=== PATIENT | female | born 1955 | race Caucasian/White ===

== ENCOUNTER 2021-03-08 07:05 | Day surgery (SDC) | payer MEDICARE, MEDICAID, SELFPAY ==
[2021-03-01 13:20] VITALS: BMI 30.8
--- NOTE | 2021-03-04 07:41 | MHC.SHP ---
Pre-Procedural Eval Section A The patient is an INPATIENT: No The History & Physical has been completed within 30 days and I have reviewed it.: Yes Section B Chief Complaint: Cataract Left Eye Allergies: Allergies Allergy/AdvReac Type Severity Reaction Status Date / Time Penicillins Allergy Severe HALLUCINATI Unverified 03/01/21 12:49 ONS adhesive tape [ADHESIVE TAPE] Allergy Intermediate SKIN Unverified 03/01/21 12:49 IRRITATION clarithromycin [From BIAXIN] Allergy Intermediate TONGUE Unverified 03/01/21 12:49 LESIONS clindamycin [Clindamycin] Allergy Intermediate HIVES Unverified 03/01/21 12:49 erythromycin base Allergy Intermediate HIVES Unverified 03/01/21 12:49 [Erythromycin Base] Iodinated Contrast Media Allergy Intermediate TREMORS Unverified 03/01/21 12:49 [IV Dye, Iodine Containing] Sulfa (Sulfonamide Allergy Intermediate HIVES Unverified 03/01/21 12:49 Antibiotics) lactose [LACTOSE] AdvReac Severe DIARRHEA Unverified 03/01/21 12:49 Shellfish Allergy Intermediate SEVERE EAR Uncoded 03/01/21 12:49 PAIN liquid oxycodone Allergy Unknown head Uncoded 03/01/21 12:49 itching - liquid prep only surgical tape Allergy Unknown irritated Uncoded 03/01/21 12:49 skin Plan Diagnosis/Plan: Unchanged I have reviewed the history and physical and performed a pertinent physical examination on my patient. No changes have occurred unless specified.
--- NOTE | 2021-03-05 09:34 | HO.ANESPROP2 ---
Documented by User: Shira Levyney 03/05/21 09:35 HPI - Anesthesia Eval Consult details Narrative: 65yo F for Left Cataract Extraction IOL Insertion PCP cleared No prev cataract on record *Multiple allergies* PMFSH Past Medical History Medical History (Updated 03/01/21 @ 13:19 by Fay العلي) Anxiety disorder Asthma CHF (congestive heart failure) COPD (chronic obstructive pulmonary disease) COVID-19 vaccine series completed Depression DJD (degenerative joint disease) Hiatal hernia HTN (hypertension) Hyperlipidemia Neck pain Obesity PTSD (post-traumatic stress disorder) Recurrent falls Sleep apnea Spinal stenosis Surgical History Surgical History (Updated 03/01/21 @ 13:19 by Fay العلي) History of carpal tunnel repair History of hysterectomy History of repair of hiatal hernia History of umbilical hernia repair Hx laparoscopic cholecystectomy Hx of dilation and curettage Hx of gastric bypass Hx of left breast biopsy Status post panniculectomy Social History Social History Are you a primary healthcare administration internship to a significant other at home: No Do you presently have visiting nurse or other home services: No Patient Tobacco Use Status: Former Tobacco user Quit Date: > 20 yrs ago Tobacco use type: Cigarette Use of substances other than those prescribed or required for medical reasons: No Have you been hit, kicked, punched, or otherwise hurt by someone within the past year? If so, by whom?: No Are you DNR?: No Advance Directives: No Advance Directives Information Provided: No Advance Directives on File: No Recently lost weight without trying: No Eating poorly because of decreased appetite: No Nutrition Risks: No Nutritional Risk Meds Allergies Allergy/AdvReac Type Severity Reaction Status Date / Time Penicillins Allergy Severe HALLUCINATI Verified 03/08/21 07:32 ONS adhesive tape [ADHESIVE TAPE] Allergy Intermediate SKIN Verified 03/08/21 07:32 IRRITATION clarithromycin [From BIAXIN] Allergy Intermediate TONGUE Verified 03/08/21 07:32 LESIONS clindamycin [Clindamycin] Allergy Intermediate HIVES Verified 03/08/21 07:32 erythromycin base Allergy Intermediate HIVES Verified 03/08/21 07:32 [Erythromycin Base] Iodinated Contrast Media Allergy Intermediate TREMORS Verified 03/08/21 07:32 [IV Dye, Iodine Containing] Sulfa (Sulfonamide Allergy Intermediate HIVES Verified 03/08/21 07:32 Antibiotics) lactose [LACTOSE] AdvReac Severe DIARRHEA Verified 03/08/21 07:32 Shellfish Allergy Intermediate SEVERE EAR Uncoded 03/01/21 12:49 PAIN liquid oxycodone Allergy Unknown head Uncoded 03/01/21 12:49 itching - liquid prep only surgical tape Allergy Unknown irritated Uncoded 03/01/21 12:49 skin Home Medications Medication Instructions Recorded Confirmed Last Taken Type albuterol sulfate [Ventolin HFA] 2 puff INHALATION QID PRN 03/01/21 03/01/21 Unknown History amlodipine 1 tab PO DAILY 03/01/21 03/01/21 Unknown History ascorbic acid (vitamin C) [Vitamin 500 mg PO BID 03/01/21 03/01/21 Unknown History C] baclofen 1 tab PO TID 03/01/21 03/01/21 Unknown History diazepam 1 tab PO BEDTIME 03/01/21 03/01/21 Unknown History diazepam 1 tab PO BID 03/01/21 03/01/21 Unknown History diclofenac sodium TOPICAL 03/01/21 Unknown History doxepin PO 03/01/21 Unknown History estradiol [Estrace] VAGINAL 03/01/21 Unknown History fluticasone propion-salmeterol 1 puff INHALATION BID 03/01/21 03/01/21 Unknown History [Advair Diskus] gabapentin 1 cap PO TID 03/01/21 03/01/21 Unknown History lamotrigine 1 tab PO DAILY 03/01/21 03/01/21 Unknown History melatonin 3 mg PO DIRECTED 03/01/21 03/01/21 Unknown History mirabegron [Myrbetriq] 1 tab PO DAILY 03/01/21 03/01/21 Unknown History multivitamin 1 tab PO DAILY 03/01/21 03/01/21 Unknown History naloxegol [Movantik] mg PO 03/01/21 Unknown History omeprazole 1 cap PO BID 03/01/21 03/01/21 Unknown History potassium chloride 1 tab PO DAILY 03/01/21 03/01/21 Unknown History prazosin 1 cap PO BEDTIME 03/01/21 03/01/21 Unknown History simvastatin 1 tab PO BEDTIME 03/01/21 03/01/21 Unknown History torsemide 1 tab PO BID 03/01/21 03/01/21 Unknown History trazodone 1 tab PO BEDTIME 03/01/21 03/01/21 Unknown History venlafaxine 150 mg PO BID 03/01/21 03/01/21 Unknown History Exam Exam Date and Time: March 05, 2021 0934 Height,Weight and Vital Signs: Height 5 ft Weight 71.668 kg Assessment and Plan Assessment Anesthesia Assessment: Chart Reviewed Documented by User: Vidhya Gruber 03/08/21 08:01 [facility] Past Medical History Medical History (Updated 03/01/21 @ 13:19 by Fay العلي) Anxiety disorder Asthma CHF (congestive heart failure) COPD (chronic obstructive pulmonary disease) COVID-19 vaccine series completed Depression DJD (degenerative joint disease) Hiatal hernia HTN (hypertension) Hyperlipidemia Neck pain Obesity PTSD (post-traumatic stress disorder) Recurrent falls Sleep apnea Spinal stenosis Surgical History Surgical History (Updated 03/01/21 @ 13:19 by Fay العلي) History of carpal tunnel repair History of hysterectomy History of repair of hiatal hernia History of umbilical hernia repair Hx laparoscopic cholecystectomy Hx of dilation and curettage Hx of gastric bypass Hx of left breast biopsy Status post panniculectomy Social History Social History Are you a primary healthcare administration internship to a significant other at home: No Do you presently have visiting nurse or other home services: No Patient Tobacco Use Status: Former Tobacco user Quit Date: > 20 yrs ago Tobacco use type: Cigarette Use of substances other than those prescribed or required for medical reasons: No Have you been hit, kicked, punched, or otherwise hurt by someone within the past year? If so, by whom?: No Are you DNR?: No Advance Directives: No Advance Directives Information Provided: No Advance Directives on File: No Recently lost weight without trying: No Eating poorly because of decreased appetite: No Nutrition Risks: No Nutritional Risk Meds Allergies Allergy/AdvReac Type Severity Reaction Status Date / Time Penicillins Allergy Severe HALLUCINATI Verified 03/08/21 07:32 ONS adhesive tape [ADHESIVE TAPE] Allergy Intermediate SKIN Verified 03/08/21 07:32 IRRITATION clarithromycin [From BIAXIN] Allergy Intermediate TONGUE Verified 03/08/21 07:32 LESIONS clindamycin [Clindamycin] Allergy Intermediate HIVES Verified 03/08/21 07:32 erythromycin base Allergy Intermediate HIVES Verified 03/08/21 07:32 [Erythromycin Base] Iodinated Contrast Media Allergy Intermediate TREMORS Verified 03/08/21 07:32 [IV Dye, Iodine Containing] Sulfa (Sulfonamide Allergy Intermediate HIVES Verified 03/08/21 07:32 Antibiotics) lactose [LACTOSE] AdvReac Severe DIARRHEA Verified 03/08/21 07:32 Shellfish Allergy Intermediate SEVERE EAR Uncoded 03/01/21 12:49 PAIN liquid oxycodone Allergy Unknown head Uncoded 03/01/21 12:49 itching - liquid prep only surgical tape Allergy Unknown irritated Uncoded 03/01/21 12:49 skin Home Medications Medication Instructions Recorded Confirmed Last Taken Type albuterol sulfate [Ventolin HFA] 2 puff INHALATION QID PRN 03/01/21 03/01/21 Unknown History amlodipine 1 tab PO DAILY 03/01/21 03/01/21 Unknown History ascorbic acid (vitamin C) [Vitamin 500 mg PO BID 03/01/21 03/01/21 Unknown History C] baclofen 1 tab PO TID 03/01/21 03/01/21 Unknown History diazepam 1 tab PO BEDTIME 03/01/21 03/01/21 Unknown History diazepam 1 tab PO BID 03/01/21 03/01/21 Unknown History diclofenac sodium TOPICAL 03/01/21 Unknown History doxepin PO 03/01/21 Unknown History estradiol [Estrace] VAGINAL 03/01/21 Unknown History fluticasone propion-salmeterol 1 puff INHALATION BID 03/01/21 03/01/21 Unknown History [Advair Diskus] gabapentin 1 cap PO TID 03/01/21 03/01/21 Unknown History lamotrigine 1 tab PO DAILY 03/01/21 03/01/21 Unknown History melatonin 3 mg PO DIRECTED 03/01/21 03/01/21 Unknown History mirabegron [Myrbetriq] 1 tab PO DAILY 03/01/21 03/01/21 Unknown History multivitamin 1 tab PO DAILY 03/01/21 03/01/21 Unknown History naloxegol [Movantik] mg PO 03/01/21 Unknown History omeprazole 1 cap PO BID 03/01/21 03/01/21 Unknown History potassium chloride 1 tab PO DAILY 03/01/21 03/01/21 Unknown History prazosin 1 cap PO BEDTIME 03/01/21 03/01/21 Unknown History simvastatin 1 tab PO BEDTIME 03/01/21 03/01/21 Unknown History torsemide 1 tab PO BID 03/01/21 03/01/21 Unknown History trazodone 1 tab PO BEDTIME 03/01/21 03/01/21 Unknown History venlafaxine 150 mg PO BID 03/01/21 03/01/21 Unknown History Exam Airway Mallampati Class: II (Edentulous) TM Dist: >3cm Neck ROM: Full Heart: rrr Lungs: cta Assessment and Plan Assessment Anesthesia Assessment: Anesthesia Plan Discussed and Chart Reviewed Final Anesthetic Review NPO: Yes (Sip water) ASA Class: III Final Preanesthetic Review: No Changes in Pt Med Stat and Consent Obtained/Reviewed Patient Risk: Intermediate Procedure Risk: Intermediate Anesthetic Plan Anesthetic Plan: MAC: Disposition: Standard PACU
[2021-03-08 07:11] VITALS: BP 131/76; PULSE 75; RESP 16; TEMP 36.3; O2SAT 97
[2021-03-08] MEDS: Tetracaine HCl/PF 0.5% Oph Sol 4 ML DROPS 1 DROP EYE-LEFT (07:35)
[2021-03-08] MEDS: Lactated Ringers 500 ML 50 ML IV (07:35)
[2021-03-08] MEDS: Tropicamide 1 % Ophth Sol 3 ML BTL 1 DROP EYE-LEFT ×3 (07:37→07:43)
[2021-03-08] MEDS: Phenylephrine HCL 2.5% Oph SoL 2 ML BOTTLE 1 DROP EYE-LEFT ×3 (07:39→07:44)
[2021-03-08] MEDS: Metoclopramide HCl 10 MG/2 ML VIAL IVPUSH (08:06)
--- NOTE | 2021-03-08 09:49 | HO.PNOPHT ---
Ophthalmology Procedure Procedure Date of Service: 03/08/21 Ophthalmology Viscoelastic: Healon Duet Dual Pack Pro Ophthalmology Lenses: TECNIS [id number] (23.5) Procedure Notes: PREOPERATIVE DIAGNOSIS: Decreased visual acuity left eye secondary to cataract POSTOPERATIVE DIAGNOSIS: Same PROCEDURE: Left cataract extraction with intraocular lens insertion SURGEON: Pasha Méndez M.D. ANESTHESIA: Topical/MAC ESTIMATED BLOOD LOSS: None COMPLICATIONS: None After obtaining informed consent, the patient was brought to the operation room suite and placed in the supine position. After adequate sedation per anesthesia, topical drops of Tetracaine were given to the left eye. The eye was then prepped and draped in the usual sterile fashion. The operating room microscope was then positioned over the operative eye and a lid speculum placed. A paracentesis was created. Viscoelastic was then instilled into the anterior chamber. A three plane incision was then created temporally, utilizing a 2.85 mm keratome. Capsulotomy forceps were then utilized to create a circular tear capsulotomy. Hydrodissection and hydrodelineation were carried out until adequate mobilization of the nucleus occurred. Phacoemulsification was then utilized to remove the dense central nucleus followed by removal of the cortical material utilizing the automated aspiration irrigation unit. Viscoat elastic was instilled into the posterior capsular bag followed by placement of a posterior chamber intraocular lens without difficulty. The residual Viscoat elastic was then removed utilizing the automated IA machine. The wound was check and found to be watertight. The patient tolerated the procedure well and the lid speculum was removed. Intracameral injection of Vigamox 0.1 mL followed by a subtenon injection of Kenalog-40 0.2 mL were administered. The patient will be seen in the a.m.
[2021-03-08 10:07] VITALS: BP 126/62; PULSE 66; RESP 17; TEMP 36.3; O2SAT 94
== END 2021-03-08 11:00 | disposition home or self-care (01) ==
PROVIDERS: PCP Internal Medicine; Visit Provider Ophthalmology
PROC: (CPT 66985; principal; 2021-03-08 09:40)
DX: H25.12 Age-related nuclear cataract, left eye (principal); H54.7 Unspecified visual loss; I11.0 Hypertensive heart disease with heart failure; I50.9 Heart failure, unspecified; J44.9 Chronic obstructive pulmonary disease, unspecified; Z88.0 Allergy status to penicillin; Z88.1 Allergy status to other antibiotic agents; Z91.041 Radiographic dye allergy status; Z88.2 Allergy status to sulfonamides; Z79.51 Long term (current) use of inhaled steroids; Z79.82 Long term (current) use of aspirin; Z79.899 Other long term (current) drug therapy
CPT/HCPCS: 66984; J2250; J2765; J3010; J3300; V2632

== ENCOUNTER 2021-03-29 06:24 | Day surgery (SDC) | payer MEDICARE, MEDICAID, SELFPAY ==
[2021-03-01 13:26] VITALS: BMI 30.8
--- NOTE | 2021-03-25 07:32 | MHC.SHP ---
Pre-Procedural Eval Section A Date of Service: 03/25/21 The patient is an INPATIENT: No The History & Physical has been completed within 30 days and I have reviewed it.: Yes Section B Chief Complaint: Cataract Right Eye Allergies: Allergies Allergy/AdvReac Type Severity Reaction Status Date / Time Penicillins Allergy Severe HALLUCINATI Verified 03/08/21 07:32 ONS adhesive tape [ADHESIVE TAPE] Allergy Intermediate SKIN Verified 03/08/21 07:32 IRRITATION clarithromycin [From BIAXIN] Allergy Intermediate TONGUE Verified 03/08/21 07:32 LESIONS clindamycin [Clindamycin] Allergy Intermediate HIVES Verified 03/08/21 07:32 erythromycin base Allergy Intermediate HIVES Verified 03/08/21 07:32 [Erythromycin Base] Iodinated Contrast Media Allergy Intermediate TREMORS Verified 03/08/21 07:32 [IV Dye, Iodine Containing] Sulfa (Sulfonamide Allergy Intermediate HIVES Verified 03/08/21 07:32 Antibiotics) lactose [LACTOSE] AdvReac Severe DIARRHEA Verified 03/08/21 07:32 Shellfish Allergy Intermediate SEVERE EAR Uncoded 03/01/21 12:49 PAIN liquid oxycodone Allergy Unknown head Uncoded 03/01/21 12:49 itching - liquid prep only surgical tape Allergy Unknown irritated Uncoded 03/01/21 12:49 skin Plan Diagnosis/Plan: Unchanged I have reviewed the history and physical and performed a pertinent physical examination on my patient. No changes have occurred unless specified.
--- NOTE | 2021-03-26 09:36 | P.CONAN_ITS ---
Documented by User: Shira Alba 03/26/21 09:37 HPI - Anesthesia Eval Consult details Narrative: 65yo F for Right Cataract Extraction IOL Insertion PCP cleared Left eye 03/08: Fent 50, Midaz 1 *Multiple allergies* PMFSH Past Medical History Medical History (Updated 03/01/21 @ 13:19 by Fay العلي) Anxiety disorder Asthma CHF (congestive heart failure) COPD (chronic obstructive pulmonary disease) COVID-19 vaccine series completed Depression DJD (degenerative joint disease) Hiatal hernia HTN (hypertension) Hyperlipidemia Neck pain Obesity PTSD (post-traumatic stress disorder) Recurrent falls Sleep apnea Spinal stenosis Surgical History Surgical History (Updated 03/01/21 @ 13:19 by Fay العلي) History of carpal tunnel repair History of hysterectomy History of repair of hiatal hernia History of umbilical hernia repair Hx laparoscopic cholecystectomy Hx of dilation and curettage Hx of gastric bypass Hx of left breast biopsy Status post panniculectomy Social History Social History Are you a primary home care music therapist to a significant other at home: No Do you presently have visiting nurse or other home services: No Patient Tobacco Use Status: Former Tobacco user Quit Date: > 20 yrs ago Tobacco use type: Cigarette Use of substances other than those prescribed or required for medical reasons: No Have you been hit, kicked, punched, or otherwise hurt by someone within the past year? If so, by whom?: No Are you DNR?: No Advance Directives: No Advance Directives Information Provided: No Advance Directives on File: No Recently lost weight without trying: No Eating poorly because of decreased appetite: No Nutrition Risks: No Nutritional Risk Patient : No Meds Allergies Allergy/AdvReac Type Severity Reaction Status Date / Time Penicillins Allergy Severe HALLUCINATI Verified 03/08/21 07:32 ONS adhesive tape [ADHESIVE TAPE] Allergy Intermediate SKIN Verified 03/08/21 07:32 IRRITATION clarithromycin [From BIAXIN] Allergy Intermediate TONGUE Verified 03/08/21 07:32 LESIONS clindamycin [Clindamycin] Allergy Intermediate HIVES Verified 03/08/21 07:32 erythromycin base Allergy Intermediate HIVES Verified 03/08/21 07:32 [Erythromycin Base] Iodinated Contrast Media Allergy Intermediate TREMORS Verified 03/08/21 07:32 [IV Dye, Iodine Containing] Sulfa (Sulfonamide Allergy Intermediate HIVES Verified 03/08/21 07:32 Antibiotics) lactose [LACTOSE] AdvReac Severe DIARRHEA Verified 03/08/21 07:32 Shellfish Allergy Intermediate SEVERE EAR Uncoded 03/01/21 12:49 PAIN liquid oxycodone Allergy Unknown head Uncoded 03/01/21 12:49 itching - liquid prep only surgical tape Allergy Unknown irritated Uncoded 03/01/21 12:49 skin Home Medications Medication Instructions Recorded Confirmed Last Taken Type albuterol sulfate [Ventolin HFA] 2 puff INHALATION QID PRN 03/01/21 03/01/21 Unknown History amlodipine 1 tab PO DAILY 03/01/21 03/01/21 03/29/21 History ascorbic acid (vitamin C) [Vitamin 500 mg PO BID 03/01/21 03/01/21 Unknown History C] baclofen 1 tab PO TID 03/01/21 03/01/21 Unknown History diazepam 1 tab PO BEDTIME 03/01/21 03/01/21 Unknown History diazepam 1 tab PO BID 03/01/21 03/01/21 Unknown History diclofenac sodium TOPICAL 03/01/21 Unknown History doxepin PO 03/01/21 Unknown History estradiol [Estrace] VAGINAL 03/01/21 Unknown History fluticasone propion-salmeterol 1 puff INHALATION BID 03/01/21 03/01/21 Unknown History [Advair Diskus] gabapentin 1 cap PO TID 03/01/21 03/01/21 03/29/21 History lamotrigine 1 tab PO DAILY 03/01/21 03/01/21 Unknown History melatonin 3 mg PO DIRECTED 03/01/21 03/01/21 Unknown History mirabegron [Myrbetriq] 1 tab PO DAILY 03/01/21 03/01/21 Unknown History multivitamin 1 tab PO DAILY 03/01/21 03/01/21 Unknown History naloxegol [Movantik] mg PO 03/01/21 Unknown History omeprazole 1 cap PO BID 03/01/21 03/01/21 03/29/21 History potassium chloride 1 tab PO DAILY 03/01/21 03/01/21 Unknown History prazosin 1 cap PO BEDTIME 03/01/21 03/01/21 Unknown History simvastatin 1 tab PO BEDTIME 03/01/21 03/01/21 Unknown History torsemide 1 tab PO BID 03/01/21 03/01/21 Unknown History trazodone 1 tab PO BEDTIME 03/01/21 03/01/21 Unknown History venlafaxine 150 mg PO BID 03/01/21 03/01/21 Unknown History Exam Exam Date and Time: March 26, 2021 0936 Height,Weight and Vital Signs: Height 5 ft Weight 71.668 kg Assessment and Plan Assessment Anesthesia Assessment: Chart Reviewed Documented by User: Nhan Jo 03/29/21 07:05 [facility] Past Medical History Medical History (Updated 03/01/21 @ 13:19 by Fay العلي) Anxiety disorder Asthma CHF (congestive heart failure) COPD (chronic obstructive pulmonary disease) COVID-19 vaccine series completed Depression DJD (degenerative joint disease) Hiatal hernia HTN (hypertension) Hyperlipidemia Neck pain Obesity PTSD (post-traumatic stress disorder) Recurrent falls Sleep apnea Spinal stenosis Surgical History Surgical History (Updated 03/01/21 @ 13:19 by Fay العلي) History of carpal tunnel repair History of hysterectomy History of repair of hiatal hernia History of umbilical hernia repair Hx laparoscopic cholecystectomy Hx of dilation and curettage Hx of gastric bypass Hx of left breast biopsy Status post panniculectomy Social History Social History Are you a primary home care music therapist to a significant other at home: No Do you presently have visiting nurse or other home services: No Patient Tobacco Use Status: Former Tobacco user Quit Date: > 20 yrs ago Tobacco use type: Cigarette Use of substances other than those prescribed or required for medical reasons: No Have you been hit, kicked, punched, or otherwise hurt by someone within the past year? If so, by whom?: No Are you DNR?: No Advance Directives: No Advance Directives Information Provided: No Advance Directives on File: No Recently lost weight without trying: No Eating poorly because of decreased appetite: No Nutrition Risks: No Nutritional Risk Patient : No Meds Allergies Allergy/AdvReac Type Severity Reaction Status Date / Time Penicillins Allergy Severe HALLUCINATI Verified 03/08/21 07:32 ONS adhesive tape [ADHESIVE TAPE] Allergy Intermediate SKIN Verified 03/08/21 07:32 IRRITATION clarithromycin [From BIAXIN] Allergy Intermediate TONGUE Verified 03/08/21 07:32 LESIONS clindamycin [Clindamycin] Allergy Intermediate HIVES Verified 03/08/21 07:32 erythromycin base Allergy Intermediate HIVES Verified 03/08/21 07:32 [Erythromycin Base] Iodinated Contrast Media Allergy Intermediate TREMORS Verified 03/08/21 07:32 [IV Dye, Iodine Containing] Sulfa (Sulfonamide Allergy Intermediate HIVES Verified 03/08/21 07:32 Antibiotics) lactose [LACTOSE] AdvReac Severe DIARRHEA Verified 03/08/21 07:32 Shellfish Allergy Intermediate SEVERE EAR Uncoded 03/01/21 12:49 PAIN liquid oxycodone Allergy Unknown head Uncoded 03/01/21 12:49 itching - liquid prep only surgical tape Allergy Unknown irritated Uncoded 03/01/21 12:49 skin Home Medications Medication Instructions Recorded Confirmed Last Taken Type albuterol sulfate [Ventolin HFA] 2 puff INHALATION QID PRN 03/01/21 03/01/21 Unknown History amlodipine 1 tab PO DAILY 03/01/21 03/01/21 03/29/21 History ascorbic acid (vitamin C) [Vitamin 500 mg PO BID 03/01/21 03/01/21 Unknown History C] baclofen 1 tab PO TID 03/01/21 03/01/21 Unknown History diazepam 1 tab PO BEDTIME 03/01/21 03/01/21 Unknown History diazepam 1 tab PO BID 03/01/21 03/01/21 Unknown History diclofenac sodium TOPICAL 03/01/21 Unknown History doxepin PO 03/01/21 Unknown History estradiol [Estrace] VAGINAL 03/01/21 Unknown History fluticasone propion-salmeterol 1 puff INHALATION BID 03/01/21 03/01/21 Unknown H istory [Advair Diskus] gabapentin 1 cap PO TID 03/01/21 03/01/21 03/29/21 History lamotrigine 1 tab PO DAILY 03/01/21 03/01/21 Unknown History melatonin 3 mg PO DIRECTED 03/01/21 03/01/21 Unknown History mirabegron [Myrbetriq] 1 tab PO DAILY 03/01/21 03/01/21 Unknown History multivitamin 1 tab PO DAILY 03/01/21 03/01/21 Unknown History naloxegol [Movantik] mg PO 03/01/21 Unknown History omeprazole 1 cap PO BID 03/01/21 03/01/21 03/29/21 History potassium chloride 1 tab PO DAILY 03/01/21 03/01/21 Unknown History prazosin 1 cap PO BEDTIME 03/01/21 03/01/21 Unknown History simvastatin 1 tab PO BEDTIME 03/01/21 03/01/21 Unknown History torsemide 1 tab PO BID 03/01/21 03/01/21 Unknown History trazodone 1 tab PO BEDTIME 03/01/21 03/01/21 Unknown History venlafaxine 150 mg PO BID 03/01/21 03/01/21 Unknown History Exam Airway Mallampati Class: II TM Dist: >3cm Neck ROM: Full Loose/Missing/Broken Teeth: Yes (no teeth) Heart: [id number] Lungs: +b/s bilaterally Assessment and Plan Assessment Anesthesia Assessment: Anesthesia Plan Discussed, PAT Visit and Chart Reviewed Final Anesthetic Review NPO: Yes ASA Class: III Final Preanesthetic Review: No Changes in Pt Med Stat, Meds/Allgs Chart Reviewed, Consent Obtained/Reviewed and Anes Risks/Benef Reviewed Patient Risk: Intermediate Procedure Risk: Low Assessment/Block/Sedation in SS: Assess/Block/Sedation-SS Anesthetic Plan Anesthetic Plan: MAC: and Agree w/ Assess. and Plan Disposition: Standard PACU
--- NOTE | 2021-03-26 09:42 | MHC.SHP ---
Documented by User: Shira Alba 03/26/21 09:43 Pre-Procedural Eval Section A Date of Service: 03/26/21 Section B Chief Complaint: Cataract Right Eye Details of Present Illness: Decrease vision R eye Relevant Family History (Specify if Yes): No Relevant Social History: Tobacco Use (ex smoker, quit >20 years) Present Medications: see Short Stay Collaborative assessment Medical History: Significant History (see collaborative assess) History of Previous Operations: Relevant previous surgery/procedure and date(s) (Left eye cataract 03/08/21 without any issue) Allergies: Allergies Allergy/AdvReac Type Severity Reaction Status Date / Time Penicillins Allergy Severe HALLUCINATI Verified 03/08/21 07:32 ONS adhesive tape [ADHESIVE TAPE] Allergy Intermediate SKIN Verified 03/08/21 07:32 IRRITATION clarithromycin [From BIAXIN] Allergy Intermediate TONGUE Verified 03/08/21 07:32 LESIONS clindamycin [Clindamycin] Allergy Intermediate HIVES Verified 03/08/21 07:32 erythromycin base Allergy Intermediate HIVES Verified 03/08/21 07:32 [Erythromycin Base] Iodinated Contrast Media Allergy Intermediate TREMORS Verified 03/08/21 07:32 [IV Dye, Iodine Containing] Sulfa (Sulfonamide Allergy Intermediate HIVES Verified 03/08/21 07:32 Antibiotics) lactose [LACTOSE] AdvReac Severe DIARRHEA Verified 03/08/21 07:32 Shellfish Allergy Intermediate SEVERE EAR Uncoded 03/01/21 12:49 PAIN liquid oxycodone Allergy Unknown head Uncoded 03/01/21 12:49 itching - liquid prep only surgical tape Allergy Unknown irritated Uncoded 03/01/21 12:49 skin Plan Diagnosis/Plan: Unchanged I have reviewed the history and physical and performed a pertinent physical examination on my patient. No changes have occurred unless specified. Documented by User: Nhan Jo 03/29/21 07:04 Pre-Procedural Eval Section A Date of Service: 03/29/21 Section B Chief Complaint: Cataract Right Eye
[2021-03-29 06:54] VITALS: BP 117/69; PULSE 76; RESP 19; TEMP 36.1; O2SAT 98
[2021-03-29] MEDS: Tropicamide 1 % Ophth Sol 3 ML BTL 1 DROP EYE-RIGHT ×3 (06:58→07:00)
[2021-03-29] MEDS: Lactated Ringers 500 ML 50 ML IV (06:58)
[2021-03-29] MEDS: Tetracaine HCl/PF 0.5% Oph Sol 4 ML DROPS 1 DROP EYE-RIGHT (06:58)
[2021-03-29] MEDS: Phenylephrine HCL 2.5% Oph SoL 2 ML BOTTLE 1 DROP EYE-RIGHT ×3 (06:59→07:00)
--- NOTE | 2021-03-29 07:03 | PC.NURSE ---
discharge instruction completed pt verbalized understanding of care of plan and d/c
--- NOTE | 2021-03-29 08:20 | HO.PNOPHT ---
Ophthalmology Procedure Procedure Date of Service: 03/29/21 Ophthalmology Viscoelastic: Healmiguel Duet Dual Pack Pro Ophthalmology Lenses: TECJOLEEN [id number] ([id number]) Procedure Notes: PREOPERATIVE DIAGNOSIS: Decreased visual acuity right eye secondary to cataract POSTOPERATIVE DIAGNOSIS: Same PROCEDURE: Right cataract extraction with intraocular lens insertion SURGEON: Pasha Méndez M.D. ANESTHESIA: Topical/MAC ESTIMATED BLOOD LOSS: None COMPLICATIONS: None After obtaining informed consent, the patient was brought to the operating room suite and placed in the supine position. After adequate sedation per anesthesia, topical drops of Tetracaine were given to the right eye. The eye was then prepped and draped in the usual sterile fashion. The operating room microscope was then positioned over the operative eye and a lid speculum placed. A paracentesis was created. Viscoelastic was then instilled into the anterior chamber. A three plane incision was then created temporally, utilizing a 2.85 mm keratome. Capsulotomy forceps were then utilized to create a circular tear capsulotomy. Hydrodissection and hydrodelineation were carried out until adequate mobilization of the nucleus occurred. Phacoemulsification was then utilized to remove the dense central nucleus followed by removal of the cortical material utilizing the automated aspiration irrigation unit. Viscoelastic was instilled into the posterior capsular bag followed by placement of a posterior chamber intraocular lens without difficulty. The residual Viscoelastic was then removed utilizing the automated IA machine. The wound was checked and found to be watertight. The patient tolerated the procedure well and the lid speculum was removed. Intracameral injection of Vigamox 0.1 mL followed by a subtenon injection of Kenalog-40 0.2 mL were administered. The patient will be seen in the a.m.
[2021-03-29 08:41] VITALS: BP 128/61; PULSE 74; RESP 16; TEMP 36.1; O2SAT 96
[2021-03-29 08:55] VITALS: O2SAT 95
== END 2021-03-29 09:00 | disposition home or self-care (01) ==
PROVIDERS: PCP Internal Medicine; Visit Provider Ophthalmology
PROC: (CPT 66985; principal; 2021-03-29 08:20)
DX: H25.11 Age-related nuclear cataract, right eye (principal); H52.4 Presbyopia; J45.909 Unspecified asthma, uncomplicated; J44.9 Chronic obstructive pulmonary disease, unspecified; I11.0 Hypertensive heart disease with heart failure; I50.9 Heart failure, unspecified; F32.9 Major depressive disorder, single episode, unspecified; Z91.81 History of falling; Z87.891 Personal history of nicotine dependence; Z79.899 Other long term (current) drug therapy
CPT/HCPCS: 66984; J2250; J3010; J3300; V2632